=== PATIENT | male | born 1990 | race African-American/Black ===

== ENCOUNTER 2018-06-13 22:36 | Inpatient (IN) ==
--- NOTE | 2018-06-13 22:44 | Emergency Department Note ---
Disposition Clinical Impression: Suicidal ideation Disposition: Admitted As Inpatient Condition: Good Time of Disposition: 04:50 Psych HPI - General Chief Complaint: ED Psychiatric Symptoms Stated Complaint: SI Time Seen by Provider: 06/13/18 22:40 Source: patient Mode of arrival: EMS Limitations: other (patient compliance ) Nursing Notes Reviewed: Yes Vital Signs Reviewed: Yes - History of Present Illness HPI Narrative: patient presents to the ED via EMS for suicidal ideation. states he has a history of suicide attempts but denies any ingestions or attempts at this time. States he has had "a lot of shit going on man" Would not elaborate. Denies pain or other somatic complaints. - Related Data Previous Rx's Medication Instructions Recorded Albuterol Sulfate [Albuterol 2 puff IH Q4HR #1 hfa.aer.ad 04/03/17 Inhaler] Cephalexin [Keflex] 500 mg PO TID #30 capsule 04/03/17 Guaifenesin/Dm/Pseudoephedrine 1 each PO BID #20 tablet 04/03/17 [Capmist Dm Tablet] PredniSONE [Deltasone] 20 mg PO DAILY #12 tablet 04/03/17 Diclofenac Potassium 50 mg PO TID PRN #20 tablet 04/25/17 Azithromycin [Azithromycin 6-Tab 250 mg PO PER PKG DI #6 tab 07/31/17 Pack] Allergies Allergy/AdvReac Type Severity Reaction Status Date / Time No Known Allergies Allergy Verified 07/31/17 14:21 Review of Systems: As reviewed in the HPI. All other systems reviewed are negative or normal. Past Medical History - Past Medical History Attestation: Yes The following information was validated with the patient. Source: patient Medical history: Reports: no medical history Surgical history: Reports: no surgical history Psychiatric history: Reports: anxiety, bipolar, depression - Social History Smoking Status: Current every day smoker Smokeless Tobacco Status: No Alcohol use: Reports: rarely Drug use: Reports: marijuana, prescription drug abuse Physical Exam - General General appearance: alert, in no apparent distress - Head Head exam: atraumatic, normocephalic, normal inspection - Eye Eye exam: Present: normal appearance, PERRL, EOMI - ENT ENT exam: normal exam, normal oropharynx, mucous membranes moist - Neck Neck exam: Present: normal inspection, full ROM, trachea midline - Chest Chest inspection: Present: normal inspection, symmetric chest wall rise - Respiratory Respiratory exam: Present: normal lung sounds bilaterally - Cardiovascular Cardiovascular exam: Present: regular rate, normal rhythm, normal heart sounds - Abdominal Exam Abdominal exam: Present: soft, Non-Tender. Absent: tenderness, distention, guarding, rebound, rigidity - Extremities Exam Extremities exam: Present: normal inspection, full ROM. Absent: tenderness, pedal edema - Back Exam Back exam: Present: normal inspection, full ROM. Absent: tenderness - Neurological Exam Neurological exam: Present: alert, oriented X3 - Psychiatric Psychiatric exam: Present: depressed, flat affect, suicidal ideation - Skin Skin exam: Present: warm, dry, intact, normal color Course Course Narrative: will get 1A eval - Reevaluation(s) Reevaluation #1: patient refused to speak with 1A. Became agitated, and did state he has too much going on to talk. Discussed we can't help him if he doesn't talk and once we turned the lights on and woke him up, he became more agitated but did calm down and agree to speak with 1A. 1A in there now. [id number] Reevaluation #2: psych saw and will admit. Time: 04:49 Vital Signs Temperature 98.2 F 06/13/18 22:40 Pulse Rate 81 06/13/18 22:40 Respiratory Rate 18 06/13/18 22:40 Blood Pressure 116/75 06/13/18 22:40 O2 Sat by Pulse Oximetry 97 06/13/18 22:40 Temperature 98.2 F 06/13/18 22:40 Pulse Rate 81 06/13/18 22:40 Respiratory Rate 18 06/13/18 22:40 Blood Pressure 116/75 06/13/18 22:40 O2 Sat by Pulse Oximetry 97 06/13/18 22:40 Oxygen Delivery Oxygen Delivery Room Air Psych - Lab Data Result diagrams: 06/13/18 23:01 06/13/18 23:01 Lab Results 06/13/18 06/13/18 06/13/18 Range/Units 23:01 23:01 23:02 WBC 7.7 (4.3-11.1) K/mcL RBC 4.30 (4.19-5.50) M/mcL Hgb 13.7 (12.9-16.9) g/dL Hct 39.8 (37.5-50.1) % MCV 92.6 (83.0-100.0) fL MCH 31.9 (28.0-33.3) pg MCHC 34.4 (31.6-35.5) g/dL RDW 12.9 (11.5-14.5) % Plt Count 293 (140-400) K/mcL MPV 9.5 (9.4-12.4) fL Immature Gran % 0.1 (0-4) % Seg Neutrophils % 38.2 % Lymphocytes % 52.7 % Monocytes % 7.0 % Eosinophils % 1.7 % Basophils % 0.3 % Neutrophils # 2.9 (1.6-8.9) K/mcL Lymphocytes # 4.1 (0.6-4.6) K/mcL Monocytes # 0.5 (0.0-1.3) K/mcL Eosinophils # 0.1 (0.0-0.6) K/mcL Basophils # 0.0 (0.0-0.2) K/mcL Sodium 136 (136-145) mEq/L Potassium 3.7 (3.5-5.1) mEq/L Chloride 105 (98-107) mEq/L Carbon Dioxide 25 (23-29) mEq/L BUN 15 (6-20) mg/dL Creatinine 1.03 (0.70-1.30) mg/dL Est GFR ( Amer) > 60 (> 60) Est GFR (Non-Af Amer) > 60 (> 60) BUN/Creatinine Ratio 15 (6-26) Glucose 91 (70-105) mg/dL Calculated Osmolality 282 (280-300) Calcium 10.1 (8.6-10.3) mg/dL Urine Color Yellow (Yellow) Urine Clarity Cloudy A (Clear) Urine pH 6.0 (5.0-8.0) pH Units Ur Specific [place] 1.026 H (1.010-1.025) Urine Protein Negative (Neg-Trace) mg/dL Urine Glucose (UA) Normal (Normal) mg/dL Urine Ketones Trace H (Negative) mg/dL Urine Blood Negative (Negative) Urine Nitrite Negative (Negative) Urine Bilirubin Small H (Negative) Urine Urobilinogen Normal (Normal) mg/dL Ur Leukocyte Esterase Trace H (Negative) Urine Microscopic RBC 5-15 H (0-3) per hpf Urine Microscopic WBC 5-15 H (0-3) per hpf Ur Squamous Epith Cells Many H (None-Few) per lpf Urine Bacteria None Seen (None-Few) per hpf Hyaline Casts None Seen (None-Few) per lpf Salicylates < 2.5 L (15.0-30.0) mg/dL Urine Opiates Screen (Dqdpad=012) ng/mL Acetaminophen < 10 L (10-20) mcg/mL Ur Barbiturates Screen (Xxrnen=351) ng/mL Ur Phencyclidine Scrn (Cutoff=25) ng/mL Ur Amphetamines Screen (Cswcvb=5370) ng/mL U Benzodiazepines Scrn (Ldseij=700) ng/mL Urine Cocaine Screen (Cutoff= 300) ng/mL U Marijuana (THC) Screen (Cutoff = 50) ng/mL Ur Drug Screen Interp Ethyl Alcohol < 10 (Less than 10) mg/dL 06/13/18 Range/Units 23:02 WBC (4.3-11.1) K/mcL RBC (4.19-5.50) M/mcL Hgb (12.9-16.9) g/dL Hct (37.5-50.1) % MCV (83.0-100.0) fL MCH (28.0-33.3) pg MCHC (31.6-35.5) g/dL RDW (11.5-14.5) % Plt Count (140-400) K/mcL MPV (9.4-12.4) fL Immature Gran % (0-4) % Seg Neutrophils % % Lymphocytes % % Monocytes % % Eosinophils % % Basophils % % Neutrophils # (1.6-8.9) K/mcL Lymphocytes # (0.6-4.6) K/mcL Monocytes # (0.0-1.3) K/mcL Eosinophils # (0.0-0.6) K/mcL Basophils # (0.0-0.2) K/mcL Sodium (136-145) mEq/L Potassium (3.5-5.1) mEq/L Chloride (98-107) mEq/L Carbon Dioxide (23-29) mEq/L BUN (6-20) mg/dL Creatinine (0.70-1.30) mg/dL Est GFR ( Amer) (> 60) Est GFR (Non-Af Amer) (> 60) BUN/Creatinine Ratio (6-26) Glucose (70-105) mg/dL Calculated Osmolality (280-300) Calcium (8.6-10.3) mg/dL Urine Color (Yellow) Urine Clarity (Clear) Urine pH (5.0-8.0) pH Units Ur Specific [place] (1.010-1.025) Urine Protein (Neg-Trace) mg/dL Urine Glucose (UA) (Normal) mg/dL Urine Ketones (Negative) mg/dL Urine Blood (Negative) Urine Nitrite (Negative) Urine Bilirubin (Negative) Urine Urobilinogen (Normal) mg/dL Ur Leukocyte Esterase (Negative) Urine Microscopic RBC (0-3) per hpf Urine Microscopic WBC (0-3) per hpf Ur Squamous Epith Cells (None-Few) per lpf Urine Bacteria (None-Few) per hpf Hyaline Casts (None-Few) per lpf Salicylates (15.0-30.0) mg/dL Urine Opiates Screen Negative (Vfdszn=590) ng/mL Acetaminophen (10-20) mcg/mL Ur Barbiturates Screen Negative (Sphdug=509) ng/mL Ur Phencyclidine Scrn Negative (Cutoff=25) ng/mL Ur Amphetamines Screen Positive H (Hqlamy=7562) ng/mL U Benzodiazepines Scrn Negative (Bbnvgs=212) ng/mL Urine Cocaine Screen Negative (Cutoff= 300) ng/mL U Marijuana (THC) Screen Positive H (Cutoff = 50) ng/mL Ur Drug Screen Interp See Below Ethyl Alcohol (Less than 10) mg/dL Psychiatric Medical Clearance - Medical Clearance Checklist Medical History: No Social History Section defined Current Vitals: Last Vital Signs Temp 98.2 F 06/13/18 22:40 Pulse 81 06/13/18 22:40 Resp 18 06/13/18 22:40 BP 116/75 06/13/18 22:40 Pulse Ox 97 06/13/18 22:40 Psychiatric Lab Panel: Drug Levels and Toxicity 06/13/18 06/13/18 23:01 23:02 Urine Opiates Screen Negative Acetaminophen < 10 L Ur Barbiturates Screen Negative Ur Phencyclidine Scrn Negative Ur Amphetamines Screen Positive H U Benzodiazepines Scrn Negative Urine Cocaine Screen Negative U Marijuana (THC) Screen Positive H Ethyl Alcohol < 10 Abnormal Labs: Abnormal lab results Urine Clarity Cloudy (Clear) A 06/13/18 23:02 Ur Specific [place] 1.026 (1.010-1.025) H 06/13/18 23:02 Urine Ketones Trace mg/dL (Negative) H 06/13/18 23: Urine Bilirubin Small (Negative) H 06/13/18 23:02 Ur Leukocyte Esterase Trace (Negative) H 06/13/18 23:02 Urine Microscopic RBC 5-15 per hpf (0-3) H 06/13/18 23:02 Urine Microscopic WBC 5-15 per hpf (0-3) H 06/13/18 23:02 Ur Squamous Epith Cells Many per lpf (None-Few) H 06/13/18 23:02 Salicylates < 2.5 mg/dL (15.0-30.0) L 06/13/18 23: Acetaminophen < 10 mcg/mL (10-20) L 06/13/18 23:01 Ur Amphetamines Screen Positive ng/mL (Covbah=5750) H 06/13/18 23:02 U Marijuana (THC) Screen Positive ng/mL (Cutoff = 50) H 06/13/18 23:02 Critical Care Time Critical Care Time: No
--- NOTE | 2018-06-13 23:01 | Emergency Department Note ---
Disposition Clinical Impression: Suicidal ideation Disposition: Admitted As Inpatient Condition: Good Referrals: NONE,PCP [Primary Care Provider] - General Adult HPI - General Chief complaint: ED Psychiatric Symptoms Stated complaint: SI Time Seen by Provider: 06/13/18 22:40 Source: patient Mode of arrival: EMS Limitations: other (patient compliance ) - History of Present Illness Pain Scale: 0 - Related Data Previous Rx's Medication Instructions Recorded Albuterol Sulfate [Albuterol 2 puff IH Q4HR #1 hfa.aer.ad 04/03/17 Inhaler] Cephalexin [Keflex] 500 mg PO TID #30 capsule 04/03/17 Guaifenesin/Dm/Pseudoephedrine 1 each PO BID #20 tablet 04/03/17 [Capmist Dm Tablet] PredniSONE [Deltasone] 20 mg PO DAILY #12 tablet 04/03/17 Diclofenac Potassium 50 mg PO TID PRN #20 tablet 04/25/17 Azithromycin [Azithromycin 6-Tab 250 mg PO PER PKG DI #6 tab 07/31/17 Pack] Allergies Allergy/AdvReac Type Severity Reaction Status Date / Time No Known Allergies Allergy Verified 07/31/17 14:21 Past Medical History - Past Medical History Medical history: Reports: no medical history Surgical history: Reports: no surgical history Psychiatric history: Reports: anxiety, bipolar, depression - Social History Smoking Status: Current every day smoker Smokeless Tobacco Status: No Alcohol use: Reports: rarely Drug use: Reports: marijuana, prescription drug abuse Physical Exam - General Limitations: other (patient compliance ) General appearance: alert, in no apparent distress Course Vital Signs Temperature 98.2 F 06/13/18 22:40 Pulse Rate 81 06/13/18 22:40 Respiratory Rate 18 06/13/18 22:40 Blood Pressure 116/75 06/13/18 22:40 O2 Sat by Pulse Oximetry 97 06/13/18 22:40 Temperature 98.2 F 06/13/18 22:40 Pulse Rate 81 06/13/18 22:40 Respiratory Rate 18 06/13/18 22:40 Blood Pressure 116/75 06/13/18 22:40 O2 Sat by Pulse Oximetry 97 06/13/18 22:40 Oxygen Delivery Oxygen Delivery Room Air Medical Decision Making - Lab Data Result diagrams: 06/13/18 23:01 06/13/18 23:01 Lab Results 07/06/13/18 06/13/18 Range/Units 23:01 23:01 23:02 WBC 7.7 (4.3-11.1) K/mcL RBC 4.30 (4.19-5.50) M/mcL Hgb 13.7 (12.9-16.9) g/dL Hct 39.8 (37.5-50.1) % MCV 92.6 (83.0-100.0) fL MCH 31.9 (28.0-33.3) pg MCHC 34.4 (31.6-35.5) g/dL RDW 12.9 (11.5-14.5) % Plt Count 293 (140-400) K/mcL MPV 9.5 (9.4-12.4) fL Immature Gran % 0.1 (0-4) % Seg Neutrophils % 38.2 % Lymphocytes % 52.7 % Monocytes % 7.0 % Eosinophils % 1.7 % Basophils % 0.3 % Neutrophils # 2.9 (1.6-8.9) K/mcL Lymphocytes # 4.1 (0.6-4.6) K/mcL Monocytes # 0.5 (0.0-1.3) K/mcL Eosinophils # 0.1 (0.0-0.6) K/mcL Basophils # 0.0 (0.0-0.2) K/mcL Sodium 136 (136-145) mEq/L Potassium 3.7 (3.5-5.1) mEq/L Chloride 105 (98-107) mEq/L Carbon Dioxide 25 (23-29) mEq/L BUN 15 (6-20) mg/dL Creatinine 1.03 (0.70-1.30) mg/dL Est GFR ( Amer) > 60 (> 60) Est GFR (Non-Af Amer) > 60 (> 60) BUN/Creatinine Ratio 15 (6-26) Glucose 91 (70-105) mg/dL Calculated Osmolality 282 (280-300) Calcium 10.1 (8.6-10.3) mg/dL Urine Color Yellow (Yellow) Urine Clarity Cloudy A (Clear) Urine pH 6.0 (5.0-8.0) pH Units Ur Specific [place] 1.026 H (1.010-1.025) Urine Protein Negative (Neg-Trace) mg/dL Urine Glucose (UA) Normal (Normal) mg/dL Urine Ketones Trace H (Negative) mg/dL Urine Blood Negative (Negative) Urine Nitrite Negative (Negative) Urine Bilirubin Small H (Negative) Urine Urobilinogen Normal (Normal) mg/dL Ur Leukocyte Esterase Trace H (Negative) Urine Microscopic RBC 5-15 H (0-3) per hpf Urine Microscopic WBC 5-15 H (0-3) per hpf Ur Squamous Epith Cells Many H (None-Few) per lpf Urine Bacteria None Seen (None-Few) per hpf Hyaline Casts None Seen (None-Few) per lpf Salicylates < 2.5 L (15.0-30.0) mg/dL Urine Opiates Screen (Frmbux=211) ng/mL Acetaminophen < 10 L (10-20) mcg/mL Ur Barbiturates Screen (Rggnze=646) ng/mL Ur Phencyclidine Scrn (Cutoff=25) ng/mL Ur Amphetamines Screen (Igruqr=0671) ng/mL U Benzodiazepines Scrn (Ceemcv=058) ng/mL Urine Cocaine Screen (Cutoff= 300) ng/mL U Marijuana (THC) Screen (Cutoff = 50) ng/mL Ur Drug Screen Interp Ethyl Alcohol < 10 (Less than 10) mg/dL 06/13/18 Range/Units 23:02 WBC (4.3-11.1) K/mcL RBC (4.19-5.50) M/mcL Hgb (12.9-16.9) g/dL Hct (37.5-50.1) % MCV (83.0-100.0) fL MCH (28.0-33.3) pg MCHC (31.6-35.5) g/dL RDW (11.5-14.5) % Plt Count (140-400) K/mcL MPV (9.4-12.4) fL Immature Gran % (0-4) % Seg Neutrophils % % Lymphocytes % % Monocytes % % Eosinophils % % Basophils % % Neutrophils # (1.6-8.9) K/mcL Lymphocytes # (0.6-4.6) K/mcL Monocytes # (0.0-1.3) K/mcL Eosinophils # (0.0-0.6) K/mcL Basophils # (0.0-0.2) K/mcL Sodium (136-145) mEq/L Potassium (3.5-5.1) mEq/L Chloride (98-107) mEq/L Carbon Dioxide (23-29) mEq/L BUN (6-20) mg/dL Creatinine (0.70-1.30) mg/dL Est GFR ( Amer) (> 60) Est GFR (Non-Af Amer) (> 60) BUN/Creatinine Ratio (6-26) Glucose (70-105) mg/dL Calculated Osmolality (280-300) Calcium (8.6-10.3) mg/dL Urine Color (Yellow) Urine Clarity (Clear) Urine pH (5.0-8.0) pH Units Ur Specific [place] (1.010-1.025) Urine Protein (Neg-Trace) mg/dL Urine Glucose (UA) (Normal) mg/dL Urine Ketones (Negative) mg/dL Urine Blood (Negative) Urine Nitrite (Negative) Urine Bilirubin (Negative) Urine Urobilinogen (Normal) mg/dL Ur Leukocyte Esterase (Negative) Urine Microscopic RBC (0-3) per hpf Urine Microscopic WBC (0-3) per hpf Ur Squamous Epith Cells (None-Few) per lpf Urine Bacteria (None-Few) per hpf Hyaline Casts (None-Few) per lpf Salicylates (15.0-30.0) mg/dL Urine Opiates Screen Negative (Vmhrcl=962) ng/mL Acetaminophen (10-20) mcg/mL Ur Barbiturates Screen Negative (Qopoek=844) ng/mL Ur Phencyclidine Scrn Negative (Cutoff=25) ng/mL Ur Amphetamines Screen Positive H (Pnfkkn=0347) ng/mL U Benzodiazepines Scrn Negative (Xhvygj=270) ng/mL Urine Cocaine Screen Negative (Cutoff= 300) ng/mL U Marijuana (THC) Screen Positive H (Cutoff = 50) ng/mL Ur Drug Screen Interp See Below Ethyl Alcohol (Less than 10) mg/dL Attestation Statement - Attestation Attestation: I examined this patient and my medical decision-making was reviewed with the Resident Physician. I agree with the documented findings, disposition and treatment plan as described except to the extent set forth below. Suicidal thoughts. States he has a lot going on at this time. Patient sitting on the edge of the bed staring at the floor. The rest of his exam is nonfocal. Plan. Medical clearance and evaluation by 1A. Patient evaluated by psych who feels he is appropriate for admission.
[2018-06-13 23:19] LABS: Bacteria,Urine None Seen per hpf (None-Few); Hyaline Casts,Urine None Seen per lpf (None-Few); Squamous Epithelial Cell,Urine Many per lpf (None-Few)
[2018-06-13 23:20] LABS: Bilirubin,Urine Small (Negative); Blood,Urine Negative (Negative); Clarity,Urine Cloudy (Clear); Color,Urine Yellow (Yellow); Glucose,Urine (UA) Normal (Normal); Ketones,Urine Trace mg/dL (Negative); Leukocyte Esterase,Urine Trace (Negative); Nitrite,Urine Negative (Negative); Protein,Urine Negative (Neg-Trace); Specific Gravity,Urine 1.026 (1.010-1.025); Urobilinogen,Urine Normal (Normal)
[2018-06-13 23:25] LABS: Amphetamine Screen,Urine Positive ng/mL (Cutoff=1000); Barbiturate Screen,Urine Negative ng/mL (Cutoff=200); Benzodiazepines Screen,Urine Negative ng/mL (Cutoff=200); Cannabinoid Screen,Urine Positive ng/mL (Cutoff = 50); Cocaine Screen,Urine Negative ng/mL (Cutoff= 300); Opiate Screen,Urine Negative ng/mL (Cutoff=300); Phencyclidine Screen,Urine Negative ng/mL (Cutoff=25)
[2018-06-13 23:28] LABS: Basophils % 0.3 %; Eosinophils # 0.1 K/mcL (0.0-0.6); Eosinophils % 1.7 %; Hematocrit 39.8 % (37.5-50.1); Hemoglobin 13.7 g/dL (12.9-16.9); Immature Granulocytes % 0.1 % (0-4); Lymphocytes # 4.1 K/mcL (0.6-4.6); Lymphocytes % 52.7 %; Mean Corpuscular HGB Conc 34.4 g/dL (31.6-35.5); Mean Corpuscular Hemoglobin 31.9 pg (28.0-33.3); Mean Corpuscular Volume 92.6 fL (83.0-100.0); Mean Platelet Volume 9.5 fL (9.4-12.4); Monocytes # 0.5 K/mcL (0.0-1.3); Neutrophils # 2.9 K/mcL (1.6-8.9); Platelet Count 293 K/mcL (140-400); Red Cell Distribution Width 12.9 % (11.5-14.5); Segmented Neutrophils % 38.2 %
[2018-06-13 23:48] LABS: Acetaminophen < 10 mcg/mL (10-20); BUN/Creatinine Ratio 15 (6-26); Blood Urea Nitrogen 15 mg/dL (6-20); Calcium 10.1 mg/dL (8.6-10.3); Carbon Dioxide 25 mEq/L (23-29); Chloride 105 mEq/L (98-107); Ethanol < 10 mg/dL (Less than 10); Glucose 91 mg/dL (70-105); Osmolality,Calculated 282 (280-300); Potassium 3.7 mEq/L (3.5-5.1); Salicylate < 2.5 mg/dL (15.0-30.0); Sodium 136 mEq/L (136-145); eGFR For Non-African Americans > 60 (> 60)
[2018-06-14] MEDS ORDERED: *HR* LORazepam 2 MG/ML VIAL IM ONE (03:25)
[2018-06-14] MEDS ORDERED: Haloperidol Lactate 5 MG/ML VIAL IM ONE (03:25)
[2018-06-14] MEDS ORDERED: MOM Conc 10 ML UD.LIQ PO PRN (05:43)
[2018-06-14] MEDS ORDERED: Mag Hydrox/Al Hydrox/Simeth 30 ML UDC PO PRN (05:43)
[2018-06-14] MEDS ORDERED: *HR* LORazepam 2 MG/ML VIAL IM PRN (05:43)
[2018-06-14] MEDS ORDERED: Haloperidol Lactate 5 MG/ML VIAL IM PRN (05:43)
[2018-06-14] MEDS ORDERED: Ibuprofen 400 MG TABLET PO PRN (05:43)
[2018-06-14] MEDS ORDERED: *HR* LORazepam 1 MG TABLET PO PRN (05:43)
--- NOTE | 2018-06-14 12:21 | Psychiatry History & Physical ---
Date of Encounter: 06/14/18 Time of Encounter: 12:19 History of Present Illness Patient Stated Chief Complaint: "i was overwhlemed" Medicare Admission Attestation: For traditional Medicare patients the provided hospital inpatient services are reasonable and necessary and in the case of services not specified as inpatient -only under 42 CFR 419.22 (n), that they are appropriately provided as inpatient services in accordance 42 CFR 412.3. For Critical Access Hospital the patient may reasonably be expected to be discharged or transferred to a hospital within 96 hours after admission to the Critical Access Hospital. Admitted From: Emergency Dept History of Present Illness: Mr. Ceron is a 27 year old male with a past psychiatric history of depression admitted to the inpatient psychiatric unit for safety and stabilization. Patient reports his reason for admission was because "I was overwhelmed and stressed". Patient reports that everyone around him is making things worse he reports that this has to do with a lot of family issues going on and reports that if he was not overwhelmed with all this he would not be feeling suicidal as he has at this current time patient was a very poor historian Nicole and he reports he is very drowsy reports he got Ativan when he was in the emergency department and he feels that he feels tired and is not able to cooperate with evaluation at this time. Patient reports that he was hospitalized 2 months ago and [facility] [place] for similar reasons for having endorse suicidal ideations he reports prior to this no other past psych inpatient hospitalization she stays patient denied any suicide attempts in the past patient reports he lives with a sister and when asked if this provider or social sciences lecturer did speak with sister patient reports "she ain't going say anything right". Patient would not elaborate on this patient would not discuss any further stressors or was not interested in discussing medication at this time when asked about past medications patient reported "cannot remember". Patient reports that he is "tired". And reports at this time he does not wish to do discussed any medication options her treatment discussed with patient that this is something that will have to be discussed once he is feeling better and more alert. She was not able to answer the question when this provider asked if he continued to feel suicidal and if he had any safety concerns patient did not say anything and remained quiet. Past Med Surg Social Fam HX - Past Medical History Medical history: no medical history - Past Psychiatric History Psychiatric history: Reports: depression Past psychiatric history details: [facility] 2 months ago for SI pt denies past SA denies outpatient psychiatrist/therapist Family psychiatric history: Unknown Family History of Suicide: None - Past Surgical History Surgical History: no surgical history - Social History Smoking Status: Current every day smoker Smokeless Tobacco Status: No Alcohol use: rarely Drug use: marijuana, prescription drug abuse Medications & Allergies Albuterol Sulfate [Albuterol Inhaler] 2 puff IH Q4HR #1 [id number] 04/03/17 [Rx] Cephalexin [Keflex] 500 mg PO TID #30 capsule 04/03/17 [Rx] Guaifenesin/Dm/Pseudoephedrine [Capmist Dm Tablet] 1 each PO BID #20 tablet [Rx] PredniSONE [Deltasone] 20 mg PO DAILY #12 tablet 04/03/17 [Rx] Diclofenac Potassium 50 mg PO TID PRN #20 tablet 04/25/17 [Rx] Azithromycin [Azithromycin 6-Tab Pack] 250 mg PO PER PKG DI #6 tab 07/31/17 [Rx] 3 Allergy/AdvReac Type Severity Reaction Status Date / Time No Known Allergies Allergy Verified 07/31/17 14:21 Review of Systems Psychiatric: Reports: depression, anxiety, suicidal ideation, difficulty concentrating, hopelessness, irritability, mood swings Exam - HEENT Head exam IM: Present: atraumatic, normal inspection - Neurological Neurological exam: Present: CN II-XII intact - Constitutional Vitals: Temp Pulse Resp BP Pulse Ox 98 F 61 16 105/63 97 06/14/18 11:10 06/14/18 11:10 06/14/18 11:10 06/14/18 11:10 06/13/18 22:40 General appearance: unkempt, disheveled, inappropriate - Musculoskeletal Gait: normal - Psychiatric Patient Orientation: Yes Person, Yes Time, Yes Place, Yes Circumstance Level of alertness: Sedated Psychomotor activity: Slowed Eye Contact: Minimal Contact Mood Description: Depressed, Labile, Irritable Affect description: flat Speech Volume: Soft/Quiet, Whispering Speech pattern: limited, monotone, mumbled Language & Vocabulary: limited Thought Process: Disorganized, Slowed Thinking Thought Content: Yes Suicidal ideation, Yes Preoccupation, Yes Poverty of Content Attention Span Ability: Unable to Focus, Unable to Sustain Attention Memory Description: Immediate Impaired, Recent Impaired, Remote Impaired Patient Reliability: Not Reliable Historian Fund of knowledge: Yes average Intelligence Estimate: Below Average Judgment: Poor Insight: Minimal Results - Labs Labs: Laboratory Last Values WBC 7.7 K/mcL (4.3-11.1) 06/13/18 23: RBC 4.30 M/mcL (4.19-5.50) 06/13/18 23: Hgb 13.7 g/dL (12.9-16.9) 06/13/18 23: Hct 39.8 % (37.5-50.1) 06/13/18 23: MCV 92.6 fL (83.0-100.0) 06/13/18: MCH 31.9 pg (28.0-33.3) 06/13/18: MCHC 34.4 g/dL (31.6-35.5) 06/13/18 23: RDW 12.9 % (11.5-14.5) 06/13/18 23: Plt Count 293 K/mcL (140-400) 06/13/18 23: MPV 9.5 fL (9.4-12.4) 06/13/18 23: Immature Gran % 0.1 % (0-4) 06/13/18 23: Seg Neutrophils % 38.2 % 06/13/18 23: Lymphocytes % 52.7 % 06/13/18 23: Monocytes % 7.0 % 06/13/18 23: Eosinophils % 1.7 % 06/13/18 23: Basophils % 0.3 % 06/13/18 23: Neutrophils # 2.9 K/mcL (1.6-8.9) 06/13/18 23:01 Lymphocytes # 4.1 K/mcL (0.6-4.6) 06/13/18 23: Monocytes # 0.5 K/mcL (0.0-1.3) 06/13/18 23: Eosinophils # 0.1 K/mcL (0.0-0.6) 06/13/18 23: Basophils # 0.0 K/mcL (0.0-0.2) 06/13/18 23: Sodium 136 mEq/L (136-145) 06/13/18 23:01 Potassium 3.7 mEq/L (3.5-5.1) 06/13/18 23: Chloride 105 mEq/L (98-107) 06/13/18 23:01 Carbon Dioxide 25 mEq/L (23-29) 06/13/18 23: BUN 15 mg/dL (6-20) 06/13/18 23: Creatinine 1.03 mg/dL (0.70-1.30) 06/13/18 23: Est GFR ( Amer) > 60 (> 60) 06/13/18 23: Est GFR (Non-Af Amer) > 60 (> 60) 06/13/18 23: BUN/Creatinine Ratio 15 (6-26) 06/13/18: Glucose 91 mg/dL (70-105) 06/13/18 23: Calculated Osmolality 282 (280-300) 06/13/18: Calcium 10.1 mg/dL (8.6-10.3) 06/13/18 23: Urine Color Yellow (Yellow) 06/13/18 23: Urine Clarity Cloudy (Clear) A 06/13/18 23: Urine pH 6.0 pH Units (5.0-8.0) 06/13/18 23: Ur Specific [place] 1.026 (1.010-1.025) H 06/13/18 23: Urine Protein Negative mg/dL (Neg-Trace) 06/13/18 23: Urine Glucose (UA) Normal mg/dL (Normal) 06/13/18 23:02 Urine Ketones Trace mg/dL (Negative) H 06/13/18 23: Urine Blood Negative (Negative) 06/13/18 23: Urine Nitrite Negative (Negative) 06/13/18 23: Urine Bilirubin Small (Negative) H 06/13/18 23: Urine Urobilinogen Normal mg/dL (Normal) 06/13/18 23:02 Ur Leukocyte Esterase Trace (Negative) H 06/13/18 23:02 Urine Microscopic RBC 5-15 per hpf (0-3) H 06/13/18 23:02 Urine Microscopic WBC 5-15 per hpf (0-3) H 06/13/18 23:02 Ur Squamous Epith Cells Many per lpf (None-Few) H 06/13/18 23:02 Urine Bacteria None Seen per hpf (None-Few) 06/13/18 23:02 Hyaline Casts None Seen per lpf (None-Few) 06/13/18 23:02 Salicylates < 2.5 mg/dL (15.0-30.0) L 06/13/18 23:01 Urine Opiates Screen Negative ng/mL (Mhyidg=472) 06/13/18 23:02 Acetaminophen < 10 mcg/mL (10-20) L 06/13/18 23:01 Ur Barbiturates Screen Negative ng/mL (Htdkbf=007) 06/13/18 23:02 Ur Phencyclidine Scrn Negative ng/mL (Cutoff=25) 06/13/18 23:02 Ur Amphetamines Screen Positive ng/mL (Ljbkjd=2898) H 06/13/18 23:02 U Benzodiazepines Scrn Negative ng/mL (Idzysb=439) 06/13/18 23:02 Urine Cocaine Screen Negative ng/mL (Cutoff= 300) 06/13/18 23:02 U Marijuana (THC) Screen Positive ng/mL (Cutoff = 50) H 06/13/18 23:02 Ur Drug Screen Interp See Below 06/13/18 23:02 Ethyl Alcohol < 10 mg/dL (Less than 10) 06/13/18 23:01 Assessment and Plan (1) Major depression Current visit: Yes Status: Acute Plan: Admit inpatient for safety and stabilization, Close observation, Suicide Precautions per unit protocol, Encourage participation in unit milieu, Group Therapy, Monitor sleep, Monitor appetite, Family/Supportive other meeting Additional Plan: - attempted to discuss medication but pt reprots not being interseted in discussing medication at this time. SW to get collateral from family Risks, benefits, side effects, alternatives discussed w/pt: Yes Patient agreeable to treatment: Yes Estimated Length of Stay (Days): 5 Qualifiers: Major depression recurrence: recurrent Active/Remission status: currently active Major depression episode severity: moderate Qualified Code(s): F33.1 - Major depressive disorder, recurrent, moderate
--- NOTE | 2018-06-15 11:19 | Psychiatry Progress Note ---
Date of Encounter: 06/15/18 Time of Encounter: 11:15 Subjective Interval history: Client minimally cooperative today. Gave limited responses to questions. Claims he is here for his anxiety. Vague about SI. Would not elaborate on anything. Kept eyes downward the entire time. According to staff he has been isolating in his room. Refused to speak with manager social media yesterday. Lives with sister but has not allowed contact with her. Told staff he does not want any visitors. Asking how long he will be here. Not on any meds. States he has taken meds in the past for "Bipolar and PTSD" but does not remember names. Looks depressed. Will start with a low dose SSRI and see how he responds. Review of Systems Constitutional: Denies: fever, chills, weakness, weight change Eyes: Denies: eye pain, vision change Ears, Nose, Throat: Denies: ear pain, throat pain, dental pain, hearing loss, congestion Cardiovascular: Denies: chest pain, palpitations, dyspnea on exertion Respiratory: Denies: cough, dyspnea, wheezes Gastrointestinal: Denies: abdominal pain, nausea, vomiting, diarrhea, constipation Musculoskeletal: Denies: joint swelling, joint pain Neurological: Denies: headache, weakness, numbness, memory loss Psychiatric: Reports: depression, anxiety, suicidal ideation, difficulty concentrating, hopelessness, irritability, mood swings Results - Vital Signs Vital Signs: Temp Pulse Resp BP Pulse Ox 97.8 F 71 18 110/71 97 06/15/18 09:00 06/15/18 09:00 06/15/18 09:00 06/15/18 09:00 06/13/18 22:40 Assessment and Plan (1) Major depression Current visit: Yes Status: Acute Plan: Continue hospitalization, Close observation, Suicide Precautions per unit protocol, Encourage participation in unit milieu, Group Therapy, Monitor sleep, Monitor appetite Risks, benefits, side effects, alternatives discussed w/pt: Yes Patient agreeable to treatment: Yes Qualifiers: Major depression recurrence: recurrent Active/Remission status: currently active Major depression episode severity: moderate Qualified Code(s): F33.1 - Major depressive disorder, recurrent, moderate Consult Discharge Plan - Plan Referrals: NONE,PCP [Primary Care Provider] - Psychiatry Exam - Constitutional Vitals: Temp Pulse Resp BP Pulse Ox 97.8 F 71 18 110/71 97 06/15/18 09:00 06/15/18 09:00 06/15/18 09:00 06/15/18 09:00 06/13/18 22:40 General appearance: age & developmentally appropriate - Musculoskeletal Gait: normal Station: relaxed Strength & Tone: normal for patient - Psychiatric Patient Orientation: Yes Person, Yes Time, Yes Place Level of alertness: Alert Behavior: guarded Psychomotor activity: Normal Eye Contact: Avoids Eye Contact Mood Description: Anxious Affect description: congruent with mood, full range Speech Volume: Normal Speech pattern: normal rate, normal rhythm, normal tone Language & Vocabulary: consistent with education Thought Process: Linear Thought Content: Yes Suicidal ideation, No Homicidal ideation, No Overt delusions Perceptual Disturbances: No Auditory hallucinations, No Visual hallucinations Attention Span Ability: Capable of Focused Attention Memory Description: Grossly Intact Patient Reliability: Questionable Historian Fund of knowledge: Yes abstraction ability, Yes aware of current events Intelligence Estimate: Average Judgment: Limited Insight: Minimal
--- NOTE | 2018-06-16 10:37 | Psychiatry Progress Note ---
Date of Encounter: 06/16/18 Time of Encounter: 10:34 Subjective Interval history: Client looks much better today. Smiling. Brighter affect. According to staff he is still isolating but this proposal lead writer observed him out socializing this morning. Eye contact good today. More willing to engage. Admits he just needed a time out. [place] he was getting too stressed and was close to snapping. Stated "it's not pretty" when he is pushed to his limits. Definitely looks more relaxed. Denying SI today. Needs outpatient follow-up scheduled. Doubt he is becoming manic but mood is much improved after just one dose of Zoloft so need to ensure he is not having a negative response to medication. Review of Systems Constitutional: Denies: fever, chills, weakness, weight change Eyes: Denies: eye pain, vision change Ears, Nose, Throat: Denies: ear pain, throat pain, dental pain, hearing loss, congestion Cardiovascular: Denies: chest pain, palpitations, dyspnea on exertion Respiratory: Denies: cough, dyspnea, wheezes Gastrointestinal: Denies: abdominal pain, nausea, vomiting, diarrhea, constipation Musculoskeletal: Denies: joint swelling, joint pain Neurological: Denies: headache, weakness, numbness, memory loss Psychiatric: Reports: depression, anxiety, suicidal ideation, difficulty concentrating, hopelessness, irritability, mood swings Results - Vital Signs Vital Signs: Temp Pulse Resp BP Pulse Ox 97.7 F 71 18 129/76 97 06/16/18 09:00 06/16/18 09:00 06/16/18 09:00 06/16/18 09:00 06/13/18 22:40 Assessment and Plan (1) Major depression Current visit: Yes Status: Acute Plan: Continue hospitalization, Close observation, Suicide Precautions per unit protocol, Encourage participation in unit milieu, Group Therapy, Monitor sleep, Monitor appetite Risks, benefits, side effects, alternatives discussed w/pt: Yes Patient agreeable to treatment: Yes Qualifiers: Major depression recurrence: recurrent Active/Remission status: currently active Major depression episode severity: moderate Qualified Code(s): F33.1 - Major depressive disorder, recurrent, moderate Consult Discharge Plan - Plan Referrals: NONE,PCP [Primary Care Provider] - Psychiatry Exam - Constitutional Vitals: Temp Pulse Resp BP Pulse Ox 97.7 F 71 18 129/76 06/16/18 09:00 06/16/18 09:00 06/16/18 09:00 06/16/18 09:00 06/13/18 22:40 General appearance: age & developmentally appropriate, well-groomed, well- nourished - Musculoskeletal Gait: normal Station: relaxed Strength & Tone: normal for patient - Psychiatric Patient Orientation: Yes Person, Yes Time, Yes Place Level of alertness: Alert Behavior: calm, cooperative Psychomotor activity: Normal Eye Contact: Maintains Eye Contact Mood Description: Euthymic/stable Affect description: congruent with mood, full range Speech Volume: Normal Speech pattern: normal rate, normal rhythm, normal tone, fluent, spontaneous Language & Vocabulary: consistent with education Thought Process: Linear, Goal Oriented Thought Content: No Suicidal ideation, No Homicidal ideation, No Overt delusions Perceptual Disturbances: No Auditory hallucinations, No Visual hallucinations Attention Span Ability: Capable of Focused Attention Memory Description: Grossly Intact Patient Reliability: Questionable Historian Fund of knowledge: Yes abstraction ability, Yes aware of current events Intelligence Estimate: Average Judgment: Fair Insight: Partial
[2018-06-16] MEDS: hydrOXYzine pamoate 25 MG CAPSULE PO PRN (22:24)
[2018-06-16] MEDS: traZODone 50 MG TABLET PO PRN (22:25)
[2018-06-17] MEDS: hydrOXYzine pamoate 25 MG CAPSULE PO PRN ×2 (16:12→20:33)
--- NOTE | 2018-06-17 17:26 | Psychiatry Progress Note ---
Date of Encounter: 06/17/18 Time of Encounter: 17:00 Subjective Interval history: ID: The patient has a 27-year-old -Bhut[place] man. Chief complaint I can stay with my sister I just had a lot of stress. History of present illness. The patient been hospitalized for major depression but consideration of bipolar disorder has occurred. The patient has had suicidal ideation but reports no immediate plan now. He does recognize that he has a court hearing on June 19 11:30 in the morning. The patient acknowledges that he has used cannabis and he has used methamphetamine. He acknowledges that his behavior is more unusual. He is grandiose loo loose in association. Expansive and mood. When asked about methamphetamine felt that it was out of his system. Nonetheless the patient is still having difficulty with a mood disturbance. He was seen lying on the couch when he got up and then was very garrulous and his immediate conversation. He was slightly disinhibited. The patient was receptive to making discharge arrangements and discharge plans. This point I will not start any medicines for bipolar disorder but further ongoing treatment was encouraged. I also encouraged sobriety Review of Systems Psychiatric: Reports: depression, anxiety, suicidal ideation, difficulty concentrating, hopelessness, irritability, mood swings Results - Vital Signs Vital Signs: Temp Pulse Resp BP Pulse Ox 97.8 F 71 16 123/71 97 06/17/18 09:00 06/17/18 09:00 06/17/18 09:00 06/17/18 09:00 06/13/18 22:40 Assessment and Plan (1) Major depressive disorder, recurrent, moderate Current visit: Yes Status: Acute Plan: Continue hospitalization, Close observation, Suicide Precautions per unit protocol, Group Therapy, Monitor sleep Risks, benefits, side effects, alternatives discussed w/pt: Yes Patient agreeable to treatment: Yes (2) Cannabis abuse, uncomplicated Current visit: Yes Status: Acute Plan: Continue hospitalization, Close observation, Suicide Precautions per unit protocol, Encourage participation in unit milieu, Group Therapy Risks, benefits, side effects, alternatives discussed w/pt: Yes Patient agreeable to treatment: Yes (3) Other stimulant abuse, uncomplicated Current visit: Yes Status: Acute Plan: Continue hospitalization, Close observation, Suicide Precautions per unit protocol, Family/Supportive other meeting Risks, benefits, side effects, alternatives discussed w/pt: Yes Patient agreeable to treatment: Yes (4) Suicidal ideation Current visit: Yes Status: Acute Plan: Continue hospitalization, Close observation, Group Therapy, Secure weapons Risks, benefits, side effects, alternatives discussed w/pt: Yes Patient agreeable to treatment: Yes Consult Discharge Plan - Plan Referrals: [facility] [Outside] Massiel Vital [Advanced Practice Nurse] - 07/11/18 10:50 am (The above appointment is with Massiel Vital CNP, at Primary Care within [facility]. This appointment is to establish you with a primary care provider. Your needs for medication and/or Vivitrol will be assessed and treated as indicated as well. Please arrive 15 minutes early to complete paperwork. Please bring your insurance card, photo ID and list of current medications to your first appointment. The above appointment(s) reflects first availability. You may contact the office regularly to check for cancellations that may allow you to be seen sooner.) Psychiatry Exam - Constitutional Vitals: Temp Pulse Resp BP Pulse Ox 97.8 F 71 16 123/71 97 06/17/18 09:00 06/17/18 09:00 06/17/18 09:00 06/17/18 09:00 06/13/18 22:40 General appearance: age & developmentally appropriate, well-groomed, well- nourished - Musculoskeletal Gait: normal Station: relaxed Strength & Tone: normal for patient - Psychiatric Patient Orientation: Yes Person, Yes Time, Yes Place Level of alertness: Alert Behavior: calm, cooperative Psychomotor activity: Increased Eye Contact: Maintains Eye Contact Mood Description: Expansive, Labile Affect description: congruent with mood, full range Speech Volume: Excessive Variation Speech pattern: normal rate, normal rhythm, normal tone, fluent, spontaneous Language & Vocabulary: consistent with education Thought Process: Tangential, Flight of Ideas Thought Content: No Suicidal ideation, No Homicidal ideation, No Overt delusions Perceptual Disturbances: No Auditory hallucinations, No Visual hallucinations Attention Span Ability: Unable to Sustain Attention Memory Description: Grossly Intact Patient Reliability: Questionable Historian Fund of knowledge: Yes average, Yes aware of current events Intelligence Estimate: Average Judgment: Fair Insight: Partial
[2018-06-17] MEDS: traZODone 50 MG TABLET PO PRN (20:33)
[2018-06-18 09:28] VITALS: BP 118/67
--- NOTE | 2018-06-18 11:36 | Discharge Summary ---
Date of Encounter: 06/18/18 Time of Encounter: 11:30 Diagnosis - Discharge Diagnosis (1) Major depressive disorder, recurrent, moderate Priority: Primary Status: Acute (2) Cannabis abuse, uncomplicated Priority: Secondary Status: Chronic (3) Other stimulant abuse, uncomplicated Priority: Secondary Status: Chronic (4) Suicidal ideation Priority: Secondary Status: Resolved (5) Other stimulant abuse with stimulant-induced mood disorder Priority: Secondary Status: Acute Medications - Discharge Medications Prescriptions: Sertraline [Zoloft] 50 mg PO DAILY 30 Days #30 tablet Sertraline [Zoloft] 50 mg PO DAILY 30 Days #30 tablet 06/18/18 [Rx] 3 Allergy/AdvReac Type Severity Reaction Status Date / Time No Known Allergies Allergy Verified 07/31/17 14:21 Provider Date of admission: 06/14/18 05:18 Primary care physician: DARY NONE Discharging clinician: Manuel Conner Psychiatry Exam - Constitutional Vitals: Temp Pulse Resp BP Pulse Ox 98.4 F 59 16 118/67 97 06/18/18 09:00 06/18/18 09:00 06/18/18 09:00 06/18/18 09:00 06/13/18 22:40 General appearance: age & developmentally appropriate, well-groomed, thin - Musculoskeletal Gait: normal Station: relaxed Strength & Tone: normal for patient - Psychiatric Patient Orientation: Yes Person, Yes Time, Yes Place Level of alertness: Alert Behavior: calm, cooperative Psychomotor activity: Normal Eye Contact: Maintains Eye Contact Mood Description: Euthymic/stable Affect description: congruent with mood, full range Speech Volume: Normal Speech pattern: normal rate, normal rhythm, normal tone, fluent, spontaneous, Inappropriate to situation Language & Vocabulary: consistent with education Thought Process: Linear, Goal Oriented, Tangential Thought Content: No Suicidal ideation, No Homicidal ideation, No Overt delusions Perceptual Disturbances: No Auditory hallucinations, No Visual hallucinations Attention Span Ability: Capable of Sustained Attention Memory Description: Grossly Intact Patient Reliability: Questionable Historian Fund of knowledge: Yes abstraction ability, Yes aware of current events Intelligence Estimate: Average Judgment: Fair Insight: Partial Hospital Course Hospital course: Mr. Ceron is a 27 year old male Chief complaint I have a court date History of present illness. The patient was initially admitted for major depression. A diagnosis of major depression was given. The patient had suicidal ideation however the patient had drug screen that was positive for methamphetamine and cannabis. The patient was initially isolative in his room he was started on sertraline. He had given a history of bipolar disorder and PTSD. The patient did attend groups but was odd and slightly disinhibited in his conversation. Patient was seen the day before discharge. Because of a court hearing for June 19 at 8:30 in the morning it was felt the patient was stabilized sufficiently to be discharged on June 18. Furthermore the patient wished to attend the court hearing. The patient's initial presentation with major depression was overshadowed by his behavior towards the end of the hospitalization. The patient did not have psychomotor agitation. But he did have distractibility grandiosity loose association disinhibited presentation. He was not hyperverbal but would sometimes interject tangential comments. Nonetheless he could be swayed stay on track. Outwardly impulsive or reckless behavior was not seen. The patient did not have any lethality at the time of discharge. Based on these observations medicine the medicine sertraline was continued no further adjustment for manic-like symptoms were made. This is because the patient felt that methamphetamine was leaving his system and that he was improved on the current medicines. The patient was cautioned against using drugs of abuse and to avoid alcohol while taking sertraline. He is aware of the side effects and indications for sertraline. Including the risk of suicidal ideation. The patient is aware of how and when to access services should he need them in the future - Time Spent with Patient Total time spent providing and/or coordinating discharge services: Less than 30 minutes Assessment and Plan - Patient/Caregiver Discharge Instructions Activity: resume usual activities as tolerated Diet: regular diet Additional Instructions: Avoid alcohol and drugs of abuse - [facility] 2:00 pm (The above appointment is with Patrizia for mental health and substance abuse counseling. Call TOMORROW June 19 to confirm your appointment Please arrive 30 minutes early. Please bring completed [facility] intake packet that you were provided at the hospital with you to this appointment. Also bring proof of insurance and photo ID. Call if you need to cancel at least 24 hours prior to your appointment. ) Massiel Vital [Advanced Practice Nurse] - 07/11/18 10:50 am (The above appointment is with Massiel Zahraa, AREA SALES MANAGER, at [facility]. This appointment is to establish you with a primary care provider. Your needs for medication and/or Vivitrol will be assessed and treated as indicated as well. Please arrive 15 minutes early to complete paperwork. Please bring your insurance card, photo ID and list of current medications to your first appointment. The above appointment(s) reflects first availability. You may contact the office regularly to check for cancellations that may allow you to be seen sooner.) Functional capacity at discharge: independent ambulation Overall status at discharge: Stable Disposition: Home, Self-Care Quality - Multiple Antipsychotics Patient discharged on 2 or more antipsychotic medications: No Procedures - Procedures Procedures: Medication Management, Crisis Stabilization, Supportive Therapy, Group Therapy, Psychoeducational Therapy
== END 2018-06-18 13:15 | disposition home or self-care (01) | DRG 751 ==
LOC: EMEROO 22:36 → 1ANU 06-14 05:00 → SUATTDRO 06-14 05:18 → 1ANU 06-14 05:18
PROVIDERS: ADMIT Psychiatry & Neurology Psychiatry; ATTEND Psychiatry & Neurology Forensic Psychiatry

== ENCOUNTER 2022-02-01 08:55 | Inpatient (IN) ==
[2022-02-01 09:36] LABS: Basophils % 0.5 %; Eosinophils # 0.1 K/mcL (0.0-0.6); Eosinophils % 1.1 %; Hematocrit 45.2 % (37.5-50.1); Hemoglobin 15.2 g/dL (12.9-16.9); Immature Granulocytes % 0.3 % (0-4); Lymphocytes # 2.8 K/mcL (0.6-4.6); Lymphocytes % 31.5 %; Mean Corpuscular HGB Conc 33.6 g/dL (31.6-35.5); Mean Corpuscular Hemoglobin 31.9 pg (28.0-33.3); Mean Platelet Volume 9.1 fL (9.4-12.4); Monocytes # 0.8 K/mcL (0.0-1.3); Platelet Count 385 K/mcL (140-400); Red Blood Count 4.76 M/mcL (4.19-5.50); Red Cell Distribution Width 12.7 % (11.5-14.5); Segmented Neutrophils % 57.6 %; White Blood Count 8.8 K/mcL (4.3-11.1)
[2022-02-01 09:37] LABS: Bilirubin,Urine Negative (Negative); Blood,Urine Negative (Negative); Clarity,Urine Clear (Clear); Color,Urine Yellow (Yellow); Glucose,Urine (UA) Normal (Normal); Ketones,Urine Negative (Negative); Leukocyte Esterase,Urine Negative (Negative); Mucus,Urine Few per lpf (None-Few); Nitrite,Urine Negative (Negative); Protein,Urine 30 mg/dL (Neg-Trace); RBC,Urine 0-3 per hpf (0-3); Specific Gravity,Urine > 1.030 (1.010-1.025); Squamous Epithelial Cell,Urine Few per hpf (None-Few); Urobilinogen,Urine Normal (Normal); WBC,Urine 0-3 per hpf (0-3)
[2022-02-01 09:58] LABS: Acetaminophen < 10 mcg/mL (10-20); Alanine Aminotransferase 111 Units/L (7-52); Albumin 4.6 g/dL (3.5-5.7); Albumin/Globulin Ratio 1.7 (1.1-2.2); Alkaline Phosphatase 65 Units/L (34-104); Aspartate Amino Transferase 57 Units/L (13-39); BUN/Creatinine Ratio 16 (6-26); Bilirubin,Direct 0.1 mg/dL (0.0-0.2); Bilirubin,Indirect 0.5 mg/dL (0.0-1.0); Bilirubin,Total 0.6 mg/dL (0.3-1.0); Blood Urea Nitrogen 17 mg/dL (6-20); Calcium 9.6 mg/dL (8.6-10.3); Carbon Dioxide 28 mEq/L (23-29); Chloride 102 mEq/L (98-107); Ethanol < 10 mg/dL (Less than 10); Globulin 2.7 g/dL (2.4-3.5); Glucose 98 mg/dL (70-105); Osmolality,Calculated 282 (280-300); Potassium 4.7 mEq/L (3.5-5.1); Salicylate < 2.5 mg/dL (15.0-30.0); Sodium 135 mEq/L (136-145); Total Protein 7.3 g/dL (6.4-8.9); eGFR For African Americans > 60 (> 60); eGFR For Non-African Americans > 60 (> 60)
[2022-02-01 09:59] LABS: Amphetamine Screen,Urine Negative ng/mL (Cutoff=1000); Barbiturate Screen,Urine Negative ng/mL (Cutoff=200); Benzodiazepines Screen,Urine Negative ng/mL (Cutoff=200); Cannabinoid Screen,Urine Positive ng/mL (Cutoff = 50); Cocaine Screen,Urine Positive ng/mL (Cutoff= 300); Opiate Screen,Urine Negative ng/mL (Cutoff=300); Phencyclidine Screen,Urine Negative ng/mL (Cutoff=25)
[2022-02-01 13:48] LABS: Influenza A PCR Negative (Negative); Influenza B PCR Negative (Negative); Resp. Syncytial Virus PCR Negative (Negative)
[2022-02-01 13:56] LABS: SARS-CoV-2 by PCR (In House) Negative (Negative)
[2022-02-01] MEDS ORDERED: Haloperidol Lactate 5 MG/ML VIAL IM PRN (14:08)
[2022-02-01] MEDS ORDERED: *HR* LORazepam 2 MG/ML VIAL IM PRN (14:08)
[2022-02-01] MEDS ORDERED: Ibuprofen 400 MG TABLET PO PRN (14:08)
[2022-02-01] MEDS ORDERED: Acetaminophen 325 MG TABLET PO PRN (14:08)
[2022-02-01] MEDS: hydrOXYzine pamoate 25 MG CAPSULE PO PRN (17:23)
[2022-02-01] MEDS: *HR* LORazepam 1 MG TABLET PO PRN (17:23)
[2022-02-01] MEDS: haloperidoL 5 MG TABLET PO PRN (17:23)
[2022-02-02] MEDS: QUEtiapine Fumarate 25 MG TABLET PO PRN (20:15)
[2022-02-02] MEDS: hydrOXYzine pamoate 25 MG CAPSULE PO PRN (20:15)
[2022-02-03] MEDS: hydrOXYzine pamoate 25 MG CAPSULE PO PRN ×2 (14:55→20:14)
[2022-02-03] MEDS: QUEtiapine Fumarate 25 MG TABLET PO PRN (20:14)
[2022-02-04] MEDS: hydrOXYzine pamoate 25 MG CAPSULE PO PRN ×2 (13:22→20:08)
[2022-02-04] MEDS: QUEtiapine Fumarate 25 MG TABLET PO PRN (20:08)
[2022-02-05] MEDS: hydrOXYzine pamoate 25 MG CAPSULE PO PRN (16:00)
[2022-02-05] MEDS ORDERED: hydrOXYzine pamoate 25 MG CAPSULE PO PRN (16:06)
[2022-02-05] MEDS: haloperidoL 5 MG TABLET PO PRN (20:09)
[2022-02-05] MEDS: *HR* LORazepam 1 MG TABLET PO PRN (20:09)
[2022-02-06 09:31] VITALS: BP 130/72; PULSE 103; TEMP 98.5; O2SAT 98
== END 2022-02-06 11:15 | disposition home or self-care (01) | DRG 776 ==
LOC: EMEROOARM 08:55 → 1ANU 14:09
PROVIDERS: ADMIT Psychiatry & Neurology Psychiatry; ATTEND Psychiatry & Neurology Psychiatry